=== PATIENT | male | born 1955 | race Caucasian/White ===

== ENCOUNTER → 2017-04-17 | Outpatient (CLI) | payer BC ==
--- NOTE | 2017-04-17 16:30 | RADRPT ---
EXAM DATE/TIME: 04/17/2017 13:07 [place] COMPARISON: No previous studies available for comparison. INDICATIONS : Tremors and parkinsons disease. DOSE: 5.14 mCi Ioflupane Iodine-123 in 2.5 ml total volume MEDICATION(S): 130 mg Potasium Iodine PO one hour prior to injection SPECT IMAGIN.5 hr. IMAGNG: SPECT/CT imaging with fusion was performed. RADIATION DOSE: 30.27 CTDIvol (mGy) MEDICAL HISTORY : Hypertension. Hypothyroidism. SURGICAL HISTORY : Vasectomy. ENCOUNTER: Initial ACUITY: >1 yr PAIN SCALE: 0/10 LOCATION: Head. TECHNIQUE: SPECT imaging of the brain was performed in sagittal, axial and coronal planes. Attenuation correctio n was performed with computed tomography and both the attenuation correction and non-attenuation cayetano ected data sets were reviewed. FINDINGS: There is abnormal biodistribution of radionuclide with period-shaped areas of activity in the striatu m. 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 Levon Banks MD on April 17, 2017 at 15:58 Board Certified Radiologist. This report was verified electronically.
== END ==
LOC: HRAD 08:27
PROVIDERS: ATTEND Specialist
DX: G20 Parkinson's disease (principal)
CPT/HCPCS: 78607; A9584